=== PATIENT | female | born 1980 | race Caucasian/White ===

== ENCOUNTER 2017-05-25 03:32 | Outpatient (CLI) | payer BC | END 2017-05-25 03:33 | disposition home or self-care (01) | LOC: BICULT 03:32 | PROVIDERS: ATTEND Internal Medicine | DX: K11.8 Other diseases of salivary glands (principal); S32.9XXA Fracture of unspecified parts of lumbosacral spine and pelvis, initial encounter for closed fracture; M19.90 Unspecified osteoarthritis, unspecified site | CPT/HCPCS: 71020; 76536 ==

== ENCOUNTER 2017-06-20 14:55 | Outpatient (CLI) | payer BC ==
--- NOTE | 2017-06-20 16:49 | RAD ---
AP PELVIS ONE VIEW: History: Pelvic pain. FINDINGS: Sacral ala and pelvic rings are intact. Sacroiliac joints and pubic symphysis are within normal limit s. No acute fracture, dislocation, or aggressive osseous erosions are visible. IMPRESSION: 1. No acute osseous abnormalities are demonstrated. POS: [facility]
--- NOTE | 2017-06-20 17:14 | ULT ---
ULTRASOUND ABDOMEN COMPLETE: DATE: 06/20/17. HISTORY: A 37 year-old female with elevated liver function tests. FINDINGS: Liver: Enlarged. Diffusely heterogeneously increased echogenicity, and diffusely coarse echotexture, consistent with diffuse hepatocellular pathology, such as fatty liver. Gallbladder: Surgically absent. Common duct: 4 mm. Spleen: No splenomegaly. Pancreas: Poorly visualized. Kidneys: No hydronephrosis. Abdominal aorta: Nonaneurysmal. Inferior vena cava: Poorly visualized. IMPRESSION: 1. Evidence for hepatic steatosis. 2. Status post cholecystectomy. JN R POS: OFF
== END 2017-06-20 14:56 | disposition home or self-care (01) ==
LOC: ULT 14:55
PROVIDERS: ATTEND Internal Medicine
DX: S32.9XXA Fracture of unspecified parts of lumbosacral spine and pelvis, initial encounter for closed fracture (principal); R79.89 Other specified abnormal findings of blood chemistry; K76.0 Fatty (change of) liver, not elsewhere classified; Z90.49 Acquired absence of other specified parts of digestive tract
CPT/HCPCS: 72170; 76700

== ENCOUNTER 2018-09-02 05:41 | Emergency (ER) | payer BC, OTHER ==
[2018-09-02 06:14] LABS: Bilirubin Negative (Negative); Blood, Urine Negative (Negative); Clarity CLEAR (Clear); Glucose, Urine (Dipstick) Negative (Negative); Leukocyte Negative (Negative); Nitrite Negative (Negative); Pregnancy Test - Urine (BHCG) Negative (Negative); Pregu Control Background? CLEAR/WHITE (CLR/WHITE); Pregu Control Bar Appear? YES (CONTROL BAR); Protein, Urine (Dipstick) Negative (Neg-Trace); Specific Gravity 1.029 (1.002-1.036); Specific Gravity, Urine 1.029 (1.002-1.036); Urobilinogen 0.2 mg/dL (0.2-1.0); pH, Urine 5.5 (5.0-9.0)
[2018-09-02 07:07] LABS: #Basophils 0.2 thou/uL (0.0-0.2); #Eosinphils 0.5 thou/uL (0.0-0.7); #Lymphocytes 5.4 thou/uL (1.20-3.40); #Monocytes 1.1 thou/uL (0.11-0.59); #Neutrophils 7.6 thou/uL (1.40-6.50); %Basophils 1.4 % (0.0-1.0); %Eosinophils 3.4 % (0.0-10.0); %Lymphocytes 36.5 % (21.0-51.0); %Monocytes 7.1 % (0.0-10.0); %Neutrophils 51.6 % (42.0-75.0); Hemoglobin 14.8 g/dL (12.0-16.0); Mean Corpuscular Hemoglobin 29.8 pg (27.0-31.0); Mean Corpuscular Volume 90.4 fL (78.0-98.0); Mean Platelet Volume 6.8 fL (7.4-10.4); Platelet Count 366 thou/uL (130-400); RBC Distribution Width 12.2 % (11.5-14.5); Red Blood Cell (RBC) Count 4.96 mill/uL (4.20-5.40); White Blood Cell (WBC) Count 14.7 thou/uL (4.8-10.8)
[2018-09-02 07:38] LABS: ALT (SGPT) 30 U/L (8-55); AST (SGOT) 19 U/L (5-34); Albumin 4.2 g/dL (3.5-5.0); Alkaline Phosphatase 46 U/L (40-150); Anion Gap 15 mmol/L (10-20); BUN (Urea Nitrogen) 15 mg/dL (7.0-18.7); Bilirubin, Total 0.2 mg/dL (0.2-1.2); Calc. Creatinine Clearance 0 mL/min (70-130); Carbon Dioxide 29 mmol/L (22-29); Chloride 103 mmol/L (98-107); Estimated GFR-MDRD 60; Globulin 2.7 g/dL (2.4-3.5); Glucose 97 mg/dL (70-105); Potassium 4.5 mmol/L (3.5-5.1); Protein, Total 6.9 g/dL (6.0-8.3); Sodium 142 mmol/L (136-145)
[2018-09-02] MEDS ORDERED: Morphine 10 MG/ML VIAL ONE (08:00)
[2018-09-02] MEDS ORDERED: Diazepam 5 MG TAB ONE (08:00)
[2018-09-02] MEDS ORDERED: Ondansetron ODT 4 MG TAB ONE (08:09)
[2018-09-02] MEDS ORDERED: Ondansetron ODT 8 MG TAB ONE (08:10)
== END 2018-09-02 08:42 | disposition home or self-care (01) ==
LOC: ERS 05:41
DX: M54.5 Low back pain (principal); E03.9 Hypothyroidism, unspecified; F32.9 Major depressive disorder, single episode, unspecified; F17.210 Nicotine dependence, cigarettes, uncomplicated
CPT/HCPCS: 36415; 80053; 81003; 81025; 85025; 96372; J2270; Q0162

== ENCOUNTER 2018-09-03 01:08 | Observation (INO) | payer BC ==
[2018-09-03] MEDS ORDERED: Dexamethasone 10 MG/ML VIAL ONE (01:21)
[2018-09-03] MEDS ORDERED: Morphine 4 MG/ML VIAL ONE (01:21)
[2018-09-03] MEDS ORDERED: Ketorolac Tromethamine 30 MG/ML VIAL ONE (02:42)
[2018-09-03] MEDS ORDERED: Fentanyl 100 MCG/2 ML VIAL ONE (05:47)
[2018-09-03 06:50] VITALS: BMI 33.3
--- NOTE | 2018-09-03 07:07 | CT ---
CT LUMBAR SPINE WITHOUT CONTRAST: INDICATIONS: Low back pain. Back spasms. FINDINGS: Vertebral body height and alignment of the lumbar spine are maintained. There is disk degenerative n arrowing, most notable at the L4-L5 and L5-S1 levels, with associated marginal osteophyte formation, resulting in mild to moderate central canal narrowing. There is also osseous neural foraminal narrow ing, incompletely evaluated. Calcified disk bulge at L3-L4 is present. There is no acute fracture. Incidental note of cholecystectomy clips. There is mild bilateral multilevel degenerative facet hyp ertrophy. IMPRESSION: 1. Degenerative changes in the lumbar spine, incompletely assessed. This could be further assessed with MRI lumbar spine as indicated. 2. No acute osseous abnormality. POS: [facility]
[2018-09-03] MEDS ORDERED: Fentanyl 100 MCG/2 ML VIAL SLOW IVP PRN (08:18)
[2018-09-03] MEDS ORDERED: Ketorolac Tromethamine 30 MG/ML VIAL IVP PRN (08:19)
[2018-09-03] MEDS ORDERED: Ondansetron PF 4 MG/2 ML Vial IVP PRN (08:39)
[2018-09-03] MEDS ORDERED: Non-Formulary Item 1 EACH (Lisdexamfetamine Dimesylate [Vyvanse] 50 MG) PO SCH (09:00)
[2018-09-03] MEDS ORDERED: Non-Formulary Item 1 EACH (Dextroamphetamine/Amphetamine [Adderall 20 Mg Tablet] 20 MG) PO SCH (09:00)
[2018-09-03] MEDS ORDERED: lamoTRIgine 25 MG TAB PO SCH (09:00)
[2018-09-03] MEDS ORDERED: Lisdexamfetamine Dimesylate [Vyvanse] 50 MG PO SCH (09:00)
--- NOTE | 2018-09-03 09:44 | RAD ---
2 views left hip: 09/03/2018 COMPARISON: None HISTORY: Left hip pain, history of psoriatic arthritis FINDINGS: There is mild superior joint space narrowing. There is mild lateral acetabular osteophyte f ormation. No displaced fracture or evidence of dislocation. IMPRESSION: No acute findings. Degenerative change of the left hip as detailed above.
[2018-09-03 09:46] LABS: #Lymphocytes 1.1 thou/uL (1.20-3.40); #Monocytes 0.2 thou/uL (0.11-0.59); #Neutrophils 8.6 thou/uL (1.40-6.50); %Basophils 0.4 % (0.0-1.0); %Eosinophils 0.4 % (0.0-10.0); %Lymphocytes 11.1 % (21.0-51.0); %Monocytes 1.8 % (0.0-10.0); %Neutrophils 86.3 % (42.0-75.0); Hemoglobin 14.6 g/dL (12.0-16.0); Mean Corpuscular HGB CONC 33.2 g/dL (32.0-36.0); Mean Corpuscular Hemoglobin 29.6 pg (27.0-31.0); Mean Corpuscular Volume 89.1 fL (78.0-98.0); Mean Platelet Volume 7.1 fL (7.4-10.4); Platelet Count 350 thou/uL (130-400); RBC Distribution Width 11.8 % (11.5-14.5); Red Blood Cell (RBC) Count 4.92 mill/uL (4.20-5.40); White Blood Cell (WBC) Count 9.9 thou/uL (4.8-10.8)
[2018-09-03] MEDS: HYDROcodone/Acetaminophen 5/325 mg Tablet PO PRN ×2 (10:02→14:15)
[2018-09-03] MEDS ORDERED: Lorazepam 2 MG/ML VIAL SLOW IVP SCH (11:00)
--- NOTE | 2018-09-03 11:06 | HP ---
CHIEF COMPLAINT: Left hip and back pain. HISTORY OF PRESENT ILLNESS: The patient is a 38-year-old female with past medical history significant for psoriatic arthritis, anxiety, and depression, who presented to the ER with complaints of left hip and lower back pain that began about five days ago. 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 The patient cannot recall if she experiences sensation from her hip or her back, but since that time, the patient reports intractable pain that seems to radiate from the left hip region up the left back. She describes the pain as a cramping. The pain is exacerbated with movement and walking. The patient was seen in the ED yesterday, and was discharged on pain medication in good condition, however, last night, the patient was sleeping in her recliner, and was experiencing pain to the point that her could not assist her to get up off the recliner. They called the ambulance for further assistance. On arrival to the ER, workup thus far has included a CT of the lumbar spine without contrast, which showed degenerative narrowing notable at the L4-L5 and L5-S1 levels with associated marginal osteophyte formation resulting in [id number] central canal narrowing. There is also a calcified disk bulge at L3-L4, no evidence of acute fracture. Further assessment with MRI was indicated. The patient's pain has been controlled thus far with Toradol and fentanyl. The patient reports that she has been treated for psoriatic arthritis in the past by Dr. Licea in [place]. She discontinued her medications on her own because she states they were making her feel "worse." She states that at one time she was taking 12 different medications. She has had chronic left hip pain in the past secondary to her psoriatic arthritis, but now states that it is worse. The patient denies any incontinence. She denies any change in sensation down her legs. ALLERGIES: NO KNOWN DRUG ALLERGIES. HOME MEDICATIONS: 1. Dextroamphetamine/amphetamine 20 mg tablet one tablet p.o. daily. 2. Lamotrigine 25 mg tablet 75 mg daily. 3. Lisdexamfetamine dimesylate 50 mg capsule one tablet p.o. q.a.m. 4. Sertraline 100 mg tablet one tablet p.o. at bedtime. PAST MEDICAL HISTORY: As mentioned above; psoriatic arthritis, hypothyroidism, anxiety, and depression. PAST SURGICAL HISTORY: 1. Cholecystectomy. 2. Appendectomy. 3. Breast reduction and abdominoplasty. 4. "Emergent hysterectomy" secondary to endometriosis at the age of 26. SOCIAL HISTORY: The patient smokes 1/2 pack per day of cigarettes. She uses alcohol occasionally. She does smoke marijuana on a regular basis, which she says is to alleviate discomfort from her psoriatic arthritis. She has two children, ages 18 and 15. She is and lives with her . FAMILY HISTORY: Noncontributory. REVIEW OF SYSTEMS: A 12-point review of systems performed and is negative except that stated above. The patient denies any fevers or chills. She has had no recent illnesses. She has had no incontinence, blood in her urine or stool. Negative for any rashes. PHYSICAL EXAMINATION: CONSTITUTIONAL: She is awake, alert, nontoxic appearing. She is afebrile. HEENT: Head and face, normocephalic and atraumatic. Eyes, extraocular movements intact. Normal conjunctiva. ENT, mucous membranes are moist. NECK: No lymphadenopathy. No JVD. Trachea is midline. Neck is supple. RESPIRATORY: Regular respiratory rate and pattern, lungs are clear to auscultation bilaterally. No rhonchi, crackles, or wheezes noted. ABDOMEN: Soft and nontender. Normal bowel sounds. No guarding or rebound. SKIN: Warm and dry, normal turgor. No rashes or lesions noted. MUSCULOSKELETAL: The patient is tender to palpation in the left hip and gluteal region with some tenderness in the left lumbar region, although no point tenderness or obvious swelling. CV: S1 and S2. Regular rate and rhythm. No appreciable murmurs, rubs or gallops. NEUROLOGIC: Cranial nerves 2 through 12 are grossly intact. The patient is nonfocal. She has normal sensation throughout both legs, +5/5 strength in both upper and lower extremities. LABORATORY DATA: Labs from September 02, 2018; white blood cell count was 14,000, hemoglobin 14.8, hematocrit 44.9, MCV 90.4. Sodium 142, potassium 4.5, chloride 103, BUN 15, creatinine 1.03. ASSESSMENT: 1. Musculoskeletal back pain, unclear etiology. No evidence of cauda equina syndrome or diskitis, I suspect muscle strain/back spasm. 2. Degenerative disk disease as outlined in lumbar CT report. 3. Psoriatic arthritis, history of noncompliance with medical treatment in the past. 4. Anxiety and depression. 5. Tobacco abuse/cannabinoid abuse. PLAN: At this time, we will proceed with MRI of the lumbar spine as well as three view x-ray of her left hip. I have also ordered physical therapy. We will continue analgesic and pain control at this time. We will repeat lab work as the patient had a mild leukocytosis, although the patient is afebrile at this time. Further recommendations based on hospital course. The plan was discussed in detail with Dr. Mckinney, who does agree with the above. Job ID: [id number]
--- NOTE | 2018-09-03 12:02 | MRI ---
LUMBAR SPINE MRI WITHOUT IV CONTRAST: Date: 09/03/18 HISTORY: Intractable back pain, DJD, bulging disc. COMPARISON: Lumbar spine CT dated 09/03/18. FINDINGS: Conus medullaris region is unremarkable, terminating at L1. L1-L2 Disc: Unremarkable. L2-L3 Disc: Unremarkable. L3-L4 Disc: Central disc extrusion with thecal sac and lateral nerve root compression with moderate central canal and lateral recess stenosis, without significant foraminal stenosis. L4-L5 Disc: Central focal disc protrusion with annular fissure, with mild central thecal sac ashlee mandy and mild central canal and lateral recess stenosis, with mild bilateral foraminal stenosis. L5-S1 Disc: Large broad based disc protrusion with mild central canal and lateral recess stenosis, a nd mild bilateral foraminal stenosis. IMPRESSION: Multiple levels of disc protrusion/extrusion changes with variable severity canal, lateral recess, an d foraminal stenosis, particularly at L3-L4, L4-L5, and L5-S1 as above. POS: [facility]
[2018-09-03 16:18] VITALS: BP 107/64; TEMP 97.9
[2018-09-03] MEDS ORDERED: Cyclobenzaprine 10 MG TAB PO PRN (16:53)
--- NOTE | 2018-09-04 04:08 | DIS ---
DATE OF ADMISSION: 09/03/2018 DATE OF DISCHARGE: 09/03/2018 ALLERGIES: NO KNOWN DRUG ALLERGIES. CHIEF COMPLAINT: Left hip and back pain. FINAL DIAGNOSES: 1. Musculoskeletal back pain, likely secondary to muscle strain and back spasm. No acute process per CT of the lumbar spine and MRI of the lumbar spine. 2. Degenerative disk disease as outlined in lumbar CT report. 3. Multiple levels of disk protrusion and extrusion at L3 through S1, which appear to be chronic. 4. Psoriatic arthritis. 5. Anxiety and depression. 6. Tobacco abuse, cannabinoid abuse. PROCEDURES PERFORMED: None. LABORATORY RESULTS: White blood cell count 9.9, hemoglobin 14.6, hematocrit 43.9, MCV 89.1, and platelet count 350. Sodium 142, potassium 4.5, chloride 103, carbon dioxide 29, BUN 15, GFR 78, creatinine 1.03, and estimated GFR 60. Liver function enzymes within normal limits. IMAGING RESULTS: Lumbar spine CT, impression, degenerative changes in lumbar spine, incompletely assessed. This could be further assessed with MRI. No acute osseous abnormality. Hip x-ray of the left hip showed no acute findings. Degenerative change of the left hip showing mild superior joint space narrowing and mild lateral acetabular osteophyte formation. No displaced fracture or evidence of dislocation. MRI of the lumbar spine, multiple-level of disk protrusion and extrusion changes with variable severity, canal lateral recess and foraminal stenosis, particularly L3-L4, L4-L5, and L5-S1. Conus medullaris region is unremarkable. CONSULTATIONS: None. VITAL SIGNS: Blood pressure 107/64, temperature 97.9, pulse 62, respirations 14, and O2 saturation 94% on room air. HOSPITAL COURSE: The patient is a 38-year-old female with past medical history significant for psoriatic arthritis, anxiety, and depression, who presented to the ER with complaints of left hip and lower back pain that began about 5 days ago. 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 The patient cannot remember if she experienced sensation from her hip or her back, but since that time, the patient had reported pain that seemed to radiate from her left hip up through the left back. She describes the pain as cramping and spasming pain. The pain was exacerbated with walking movement. The patient denied any fever, chills, nausea, or vomiting. The patient and her eventually called the ambulance when her pain was severe enough that she did not feel like she could get up off the recliner. She denies any incontinence, and had full range of motion and strength in her bilateral lower extremities. She had imaging outlined as above that showed no acute process. The patient was initially given fentanyl for pain control, which did help relieve her pain. She was also given Toradol. The patient's pain completely resolved with administration of muscle relaxer. The patient ambulated with physical therapy all the way up and down the denise, and at the time of my dictation, the patient's pain had resolved. PHYSICAL EXAMINATION: CONSTITUTIONAL: Awake, alert, and well-appearing. HEENT: Head and face, normocephalic and atraumatic. Extraocular movements intact. NECK: No lymphadenopathy. No JVD. Trachea is midline. Neck is supple. RESPIRATORY: Regular respiratory rate pattern. Lungs are clear to auscultation bilaterally. No rhonchi, crackles, or wheezes noted. ABDOMEN: Soft, nontender. Normal bowel sounds. No guarding or rebound. NEUROLOGIC: The patient has full sensation throughout both lower extremities. She has full strength +5/5 in both lower extremities. MUSCULOSKELETAL: The patient did have some mild tenderness to palpation, which was much improved in the left gluteal and left lower back area. CV: S1 and S2. Regular rate and rhythm. No appreciable murmurs, rubs, or gallops. NEUROLOGIC: Cranial nerves 2 through 12 grossly intact. The patient is nonfocal. CONDITION AT DISCHARGE: Stable. DISCHARGE MEDICATIONS: The patient will continue her home medications of: 1. Dextroamphetamine/amphetamine 20 mg tablet one tablet p.o. daily while at work. 2. Lamotrigine 75 mg p.o. daily. 3. Lisdexamfetamine dimesylate 50 mg tablet one tablet p.o. q.a.m. as needed at work. 4. Sertraline 100 mg tablet one tablet p.o. at bedtime. New medications will be: 1. Flexeril 5 mg tablet one p.o. t.i.d. p.r.n. back and muscle spasm. 2. Ibuprofen 400 mg tablet one tablet p.o. q.6 hours. DISCHARGE DISPOSITION: Home. PLAN: The patient's pain has been controlled, and she is ambulating now without issue. We will discharge the patient home. I have told her that if her back pain continues, she may discuss with her PCP, options of pain management and localized injections versus congregational care pastor, massage therapy, or physical therapy. The patient understands. Care discussed with Dr. Mckinney, who agrees with the above. Job ID: [id number]
== END 2018-09-03 18:40 | disposition home or self-care (01) ==
LOC: SCSER 01:08 → SURG A 02:45
PROVIDERS: ADMIT Internal Medicine; ATTEND Internal Medicine
DX: M51.36 Other intervertebral disc degeneration, lumbar region (principal); M51.27 Other intervertebral disc displacement, lumbosacral region; L40.50 Arthropathic psoriasis, unspecified; F41.9 Anxiety disorder, unspecified; F32.9 Major depressive disorder, single episode, unspecified; E03.9 Hypothyroidism, unspecified; F17.210 Nicotine dependence, cigarettes, uncomplicated; F12.10 Cannabis abuse, uncomplicated; Z90.49 Acquired absence of other specified parts of digestive tract; Z90.710 Acquired absence of both cervix and uterus; Z79.899 Other long term (current) drug therapy; Z98.890 Other specified postprocedural states
CPT/HCPCS: 36415; 72131; 72148; 85025; 96374; 96375; 96376; G0378; J1100; J1885; J2060; J2270; J3010

== ENCOUNTER 2019-07-10 08:44 | Outpatient (CLI) | payer BC ==
--- NOTE | 2019-07-16 10:13 | MMO ---
Bilateral Oly 3D Diagnostic Bilat W CAD. CLINICAL HISTORY: Patient is 39 years old and is seen for diagnostic exam. The patient has no family history of breast cancer. The patient has no personal history of cancer. The patient has a history of right Ultrasound Guided Core Biopsy in August, - benign. VIEWS: The views performed were: bilateral craniocaudal with tomosynthesis; bilateral mediolateral oblique with tomosynthesis; and bilateral mediolateral with tomosynthesis. FILMS COMPARED: The present examination has been compared to a prior imaging study performed at [facility] on 12/23/2015. This study has been interpreted with the assistance of computer-aided detection. Standard digital mammography was supplemented by the acquisition of digital breast tomosynthesis. MAMMOGRAM FINDINGS: There are scattered fibroglandular densities. Finding 1: There are multiple fat containing masses of varying size with circumscribed margins seen in the sub-areolar region of the right breast. Includes palpable finding. Evidence for fat necrosis. Finding 2: There is a mass measuring 8 millimeters with obscured margins seen in the right breast at 9 o'clock. In the left breast, there are no suspicious masses, calcifications or areas of architectural distortion. IMPRESSION: FINDING 1: MASSES IN THE SUB-AREOLAR REGION OF THE RIGHT BREAST ARE BENIGN. FINDING 2: MASS IN THE RIGHT BREAST AT 9 O'CLOCK IS PROBABLY BENIGN. FOLLOW-UP IN 6 MONTHS IS RECOMMENDED. ACR BI-RADS Category 3 - Probably benign finding - short interval follow-up suggested. [facility] will notify the patient of the need for additional imaging services. MAMMOGRAPHY NOTE: 1. A negative mammogram report should not delay a biopsy if a dominant of clinically suspicious mass is present. 2. Approximately 10% to 15% of breast cancers are not detected by mammography. 3. Adenosis and dense breasts may obscure an underlying neoplasm. Reported by: ZINA UMANZOR MD Electonically Signed: [id number]
== END 2019-07-10 08:45 | disposition home or self-care (01) ==
LOC: BICMAMMO 08:44
PROVIDERS: ATTEND Family Medicine
DX: N63.13 Unspecified lump in the right breast, lower outer quadrant (principal)
CPT/HCPCS: 77066; G0279

== ENCOUNTER 2019-07-10 10:00 | Outpatient (CLI) | payer BC, OTHER ==
--- NOTE | 2019-07-10 11:47 | ULT ---
ULTRASOUND ABDOMEN COMPLETE: DATE: 07/10/2019 HISTORY: 39-year-old female with generalized abdominal pain. FINDINGS: Gallbladder: Surgically absent. Liver: Diffusely increased echogenicity, consistent with fatty liver. Increased size. Common duct caliber: 5 mm. Bilateral kidneys: No hydronephrosis. Pancreas: Poorly visualized. Abdominal aorta: No aneurysm Inferior vena cava: Unremarkable where visualized. Spleen: No splenomegaly IMPRESSION: 1) Hepatic steatosis and hepatomegaly. 2) no other pathology identified. 3) pancreas not visualized. 4) status post cholecystectomy.
--- NOTE | 2019-07-10 11:56 | ULT ---
RIGHT BREAST ULTRASOUND: HISTORY: Palpable finding in the right breast with masses on diagnostic mammogram. FINDINGS: Multiple cysts are noted in the 12 o'clock position, approximately 2 cm from the nipple, including th e palpable finding. The largest of these measures 0.8 cm in size, consistent with multiple areas of f at necrosis/oil cysts. At the 3 o'clock position of the right breast, the 0.8 cm in diameter mammographic finding is not def initely seen. There is an 0.5 x 0.6 cm in diameter cyst in the right breast at 2 o'clock, 2 cm from t he nipple, probably representing an oil cyst. IMPRESSION: Multiple areas of fat necrosis with oil cysts, including the palpable finding at 12 o'clock. Small, 0 .6 cm in diameter cyst at approximately the 2 o'clock position. This seems smaller than the mammograp hic finding. Conceivably this could be secondary to a somewhat thicker wall that appears larger on ma mmography. It is conceivable this could represent some other isoechoic nodule in the 3 o'clock positi on of the right breast that is just not visible on ultrasound. BI-RADS category 3 - probably benign f indings. The area of concern is the 0.8 cm in diameter mammographic mass at 3 o'clock in the right br east. This could represent an area of fat necrosis or an isoechoic mass or possibly the hypoechoic cy st seen at the 2 o'clock position, 2 cm from the nipple, but there is a slight discrepancy in size. F ollow-up right unilateral diagnostic mammogram and right breast ultrasound is recommended in six [facility] hs. Findings were discussed with the patient, who is in agreement with proceeding to the six month short- term surveillance. POS: OFF
== END 2019-07-10 10:01 | disposition home or self-care (01) ==
LOC: BICULT 10:00
DX: R10.9 Unspecified abdominal pain (principal); R19.4 Change in bowel habit; N60.01 Solitary cyst of right breast; R16.0 Hepatomegaly, not elsewhere classified; Z90.49 Acquired absence of other specified parts of digestive tract; K76.0 Fatty (change of) liver, not elsewhere classified
CPT/HCPCS: 93975

== ENCOUNTER 2021-12-15 18:07 | Emergency (ER) | payer BC, SELFPAY ==
[~2021-12-15 18:07] MED LIST: ISOVUE-370 76%-LOCM 1 ML ONE
[2021-12-15 19:00] LABS: #Lymphocytes 0.4 thou/uL (1.20-3.40); #Monocytes 0.5 thou/uL (0.11-0.59); #Neutrophils 6.2 thou/uL (1.40-6.50); %Basophils 0.3 % (0.0-1.0); %Eosinophils 0.5 % (0.0-10.0); %Lymphocytes 4.9 % (21.0-51.0); %Monocytes 6.5 % (0.0-10.0); %Neutrophils 87.8 % (42.0-75.0); Hemoglobin 13.5 g/dL (12.0-16.0); Mean Corpuscular HGB CONC 34.2 g/dL (32.0-36.0); Mean Corpuscular Hemoglobin 30.9 pg (27.0-31.0); Mean Corpuscular Volume 90.4 fL (78.0-98.0); Mean Platelet Volume 7.1 fL (7.4-10.4); Platelet Count 237 thou/uL (130-400); RBC Distribution Width 11.6 % (11.5-14.5); Red Blood Cell (RBC) Count 4.37 mill/uL (4.20-5.40); White Blood Cell (WBC) Count 7.1 thou/uL (4.8-10.8)
[2021-12-15 19:15] LABS: Bacteria/HPF None Seen HPF (None Seen); Bilirubin Negative (Negative); Blood, Urine Negative (Negative); Clarity Clear (Clear); Glucose, Urine (Dipstick) Normal (Negative); Ketone, Urine 100 mg/dL (Negative); Leukocyte Negative Leu/uL (Negative); Mucous/LPF 1+ LPF (<2+); Nitrite Negative (Negative); Protein, Urine (Dipstick) 30 mg/dL (Neg-Trace); Specific Gravity, Urine 1.027 (1.002-1.036); Squamous Epithelial None Seen HPF (0-3); Urobilinogen Normal mg/dL (Less than 2); WBC/HPF 0-3 HPF (0-3)
[2021-12-15] MEDS ORDERED: Ketorolac Tromethamine 30 MG/ML VIAL ONE (19:18)
[2021-12-15] MEDS ORDERED: Morphine 4 MG/ML VIAL ONE (19:18)
[2021-12-15 19:46] LABS: ALT (SGPT) 18 U/L (8-55); AST (SGOT) 17 U/L (5-34); Albumin 4.1 g/dL (3.5-5.0); Alkaline Phosphatase 42 U/L (40-110); Anion Gap 14 mmol/L (10-20); Bilirubin, Total 0.4 mg/dL (0.2-1.2); Calc. Creatinine Clearance 0 mL/min (70-130); Calcium 9.3 mg/dL (7.8-10.44); Carbon Dioxide 24 mmol/L (22-29); Chloride 105 mmol/L (98-107); Estimated GFR 84; Globulin 2.9 g/dL (2.4-3.5); Glucose 117 mg/dL (70-105); Lipase 26 U/L (8-78); Potassium 3.8 mmol/L (3.5-5.1); Sodium 139 mmol/L (136-145)
[2021-12-15 20:06] LABS: BUN (Urea Nitrogen) 9 mg/dL (7.0-18.7)
[2021-12-15 22:18] LABS: BHCG - Serum Negative (NEGATIVE); Pregs Control Background? CLEAR/WHITE (CLR/WHITE); Pregs Control Bar Appear? YES (CONTROL BAR)
== END 2021-12-15 20:55 | disposition home or self-care (01) ==
LOC: ERS 18:07
DX: K76.0 Fatty (change of) liver, not elsewhere classified (principal); E03.9 Hypothyroidism, unspecified; F17.210 Nicotine dependence, cigarettes, uncomplicated; Z79.899 Other long term (current) drug therapy
CPT/HCPCS: 36415; 74177; 80053; 81003; 81015; 83690; 84703; 85025; 96374; 96375; J1885; J2270; Q9966